=== PATIENT | female | born 1955 | race African-American/Black ===

== ENCOUNTER 2025-05-12 13:53 | Emergency (ER) | payer OTHER ==
[2025-05-12 15:32] LABS: ABSOLUTE IMMATURE GRANULOCYTES 0.02 x10^3/uL (0.0-0.031); BASOPHILS # 0.04 x10^3/uL (0.01-0.08); EOSINOPHIL % 1.1 % (0.7-5.8); EOSINOPHILS # 0.13 x10^3/uL (0.04-0.36); MCHC 32.2 g/dl (32.2-35.5); MEAN CELL VOLUME 79.3 fl (79.4-94.8); MEAN PLT VOLUME 10.5 fl (9.4-12.3); MONOCYTE # 0.66 x10^3/uL (0.24-0.86); MONOCYTE % 5.7 % (4.7-12.5); RDW 13.0 % (12.4-16.4)
[2025-05-12 15:39] LABS: ALK PHOS 94.0 U/L (45-117); CO2 31.0 mmol/L (21-32); CREATININE 1.2 mg/dl (0.6-1.3); GLUCOSE,RANDOM 353.0 mg/dl (74-106); SGOT/AST 14.0 U/L (15-37); SGPT/ALT 21.0 U/L (7-52); TOT PROT 6.9 g/dl (6.4-8.2)
[2025-05-12] MEDS: SODIUM CHLORIDE 0.9% 500 ML INFUS.BAG IV ONE (16:28)
[2025-05-12 18:03] VITALS: BP 141/46; PULSE 87; RESP 18; TEMP 98.4; BMI 28.9
== END 2025-05-12 19:02 | disposition home or self-care (01) ==
LOC: FER 13:53
DX: E11.65 Type 2 diabetes mellitus with hyperglycemia (principal); R53.1 Weakness
CPT/HCPCS: 36415; 80053; 82962; 84484; 85025; 93005; 99284-25